=== PATIENT | female | born 1955 | race Caucasian/White ===

== ENCOUNTER → 2017-03-20 | Outpatient (CLI) | payer BC ==
[~2017-03-20] MED LIST: AMBIEN10 M1 PO; CELEXA40 MG PO; DONNATAL1 TAB PO; PRILOSEC20 M2 PO; VICODIN 5/500 505 MG PO; ZETIA10 MG PO
[2017-03-20 08:57] LABS: BASO % 0.5 % (0.0-1.0); EOS # 0.3 10*3/uL (0.0-0.4); EOS % 3.9 % (1.0-4.0); HEMOGLOBIN 14.4 g/dl (12.0-16.0); MEAN CELL VOLUME 95.7 fl (81.0-99.0); MEAN CORPUSCULAR HGB 30.6 pg (27.0-31.0); MEAN PLATELET VOLUME 10.5 fl (9.6-12.3); MONO # 0.6 10*3/uL (0.1-1.0); MONO % 8.5 % (3.0-9.0); NEUT # 2.8 10*3/uL (2.3-7.9); NEUT % 41.6 % (47.0-73.0); PLATELET COUNT AUTOMATED 191 10*3/uL (130-400); RED CELL DISTRI WIDTH 13.6 % (0-14.5); WHITE BLOOD COUNT 6.6 10*3/uL (4.8-10.8)
[2017-03-20 09:06] LABS: ALBUMIN 3.8 gm/dl (3.1-4.5); ALKALINE PHOSPHATASE 136 U/L (45-117); BUN 15 mg/dl (7-24); CHLORIDE 105 mmol/L (98-107); CHOLESTEROL 158 mg/dL (<200); CREATININE 0.82 mg/dL (0.55-1.02); HDL CHOLESTEROL 48 mg/dl (40-60); LDL CHOLESTEROL 81 mg/dL (9-159); POTASSIUM 4.1 mmol/L (3.5-5.1); SGOT/AST 34 IU/L (3-35); SGPT/ALT 32 U/L (12-78); SODIUM 141 mmol/L (136-145); TOTAL PROTEIN 7.5 gm/dL (6.4-8.2); TRIGLYCERIDES 145 mg/dl (<150); VLDL CHOLESTEROL 29 mg/dL (6-40)
== END | disposition home or self-care (01) ==
LOC: LAB 08:12
PROVIDERS: Physician Assistant Medical
DX: E78.00 Pure hypercholesterolemia, unspecified (principal)

== ENCOUNTER → 2017-03-28 | Outpatient (CLI) | payer BC | END | disposition home or self-care (01) | LOC: LAB 11:55 | DX: R73.9 Hyperglycemia, unspecified (principal) ==

== ENCOUNTER → 2017-05-13 | Outpatient (CLI) | payer BC ==
[~2017-05-13] MED LIST changes: +B12100 MC1 PO; +COQ-10100 MG PO; +FIBER GUMMIES2 GM PO; +FISH OIL 1,2001 EAC1 PO; +LORAZEPAM0.5 MG PO; +SERTRALINE HYD100 MG PO; +VIT D PO; +ZOCOR20 MG PO; +ZOLPIDEM10 MG PO
--- NOTE | ~2017-05-13 | ST ---
[place], [place] EXERCISE STRESS TEST REPORT NAME: [facility]KEON [facility]: [id number] UNIT #: [id number] ROOM: DOCTOR: SHIVA CANELA MD BIRTHDATE: [birth year] DOS: 05/13/2017 PHARMACOLOGICAL STRESS TEST REPORT ORDERING PHYSICIAN: Dr. Wynne REASON FOR STRESS TEST: Abnormal electrocardiogram, preoperative examination. PROCEDURE IN DETAIL: The patient was given a rapid infusion of regadenoson 0.4 mg intravenously, followed by a saline flush. She felt chest heaviness and a fullness in her head as well as abdominal discomfort that all resolved spontaneously. Forty seconds after the infusion of regadenoson, she was given radionuclide intravenously. The resting heart rate of 69 daniel to 112. The resting blood pressure of 132/84 daniel to 148/84. She did not have any diagnostic electrocardiographic changes aside from an appropriate tachycardic response. IMPRESSION: 1. Well tolerated infusion of regadenoson. 2. Radionuclide injected. Please see the separate imaging report for further details of the patient's stress test results. SHIVA CANELA MD CM:STRESS:EXERCISE STRESS TEST REPORT [id number] SHIVA CANELA MD
--- NOTE | 2017-05-13 09:30 | NUR ---
INFORMED CONSENT OBTAINED FOR LEXISCAN NUCLEAR STRESS TEST WITH DR. CANELA. RESTING EKG NSR WITH A RESTING HR OF 69 WITH BP OF 132/84. LUNGS CLEAR WITH SPO2 OF 93% ON ROOM AIR. PT COMPLETED A 1:00 LEXISCAN PROTOCOL RECEIVING LEXISCAN 0.4 MG IV OVER 10 SECONDS. HAD NO EKG CHANGES. DID C/O "CHEST HEAVINESS, FULLNESS IN HEAD" AND ABDOMINAL DISCOMFORT THAT WAS RELIEVED IN RECOVERY. HAD A PEAK HR OF 112 WITH BP OF 140/80. LAST RECOVERY HR OF 109 WITH BP OF 148/84. AWAITING SCANNING IN STABLE CONDITION.
== END | disposition home or self-care (01) ==
LOC: CARD 02:17
DX: Z01.818 Encounter for other preprocedural examination (principal); R94.31 Abnormal electrocardiogram [ECG] [EKG]; Z82.49 Family history of ischemic heart disease and other diseases of the circulatory system

== ENCOUNTER → 2022-02-11 | Outpatient (CLI) | payer MEDICARE | END | disposition home or self-care (01) | LOC: RAD 09:00 | PROVIDERS: ATTEND Family Medicine | DX: M81.0 Age-related osteoporosis without current pathological fracture (principal) ==

== ENCOUNTER → 2022-02-25 | Outpatient (CLI) | payer MEDICARE | END | disposition home or self-care (01) | LOC: CT 10:00 | PROVIDERS: ATTEND Specialist | DX: S09.93XA Unspecified injury of face, initial encounter (principal); J32.2 Chronic ethmoidal sinusitis; J32.0 Chronic maxillary sinusitis; X58.XXXA Exposure to other specified factors, initial encounter; Y93.89 Activity, other specified; Y92.89 Other specified places as the place of occurrence of the external cause; Y99.8 Other external cause status ==

== ENCOUNTER 2022-06-10 09:41 | Emergency (ER) | payer MEDICARE ==
[~2022-06-10] VITALS: Ht 177.8 cm; Wt 63.5 kg
[2022-06-10 13:34] LABS: BASO % 0.3 % (0.0-1.0); EOS # 0.2 10*3/uL (0.0-0.4); EOS % 2.4 % (1.0-4.0); HEMATOCRIT 41.7 % (37.0-47.0); LYMPH # 1.7 10*3/uL (1.3-4.4); LYMPH % 22.7 % (27.0-41.0); MEAN CELL VOLUME 94.6 fl (81.0-99.0); MEAN CORPUSCULAR HGB 30.8 pg (27.0-31.0); MEAN CORPUSCULAR HGB CONC 32.6 g/dl (33.0-37.0); MEAN PLATELET VOLUME 9.9 fl (9.6-12.3); MONO # 0.6 10*3/uL (0.1-1.0); NEUT % 66.3 % (47.0-73.0); PLATELET COUNT AUTOMATED 170 10*3/uL (130-400); RED BLOOD COUNT 4.41 10*6/uL (4.10-5.10); RED CELL DISTRI WIDTH 13.1 % (0-14.5); WHITE BLOOD COUNT 7.5 10*3/uL (4.8-10.8)
[2022-06-10 13:51] LABS: ALKALINE PHOSPHATASE 110 U/L (45-117); BUN 11 mg/dl (7-24); CHLORIDE 106 mmol/L (98-107); CREATININE 0.69 mg/dL (0.55-1.02); POTASSIUM 3.9 mmol/L (3.5-5.1); SGPT/ALT 12 U/L (12-78); SODIUM 137 mmol/L (136-145); TOTAL PROTEIN 7.3 gm/dL (6.4-8.2)
[2022-06-10] MEDS ORDERED: Motrin,Rufen800 MG PO (16:50)
[2022-06-10] MEDS ORDERED: HYDROCODONE-AC1 EAC1 PO (16:50)
[2022-06-10] MEDS ORDERED: CEPHALEXIN500 M1 PO (16:50)
== END 2022-06-10 17:06 | disposition home or self-care (01) ==
LOC: ED 09:41
PROVIDERS: Physician Assistant
DX: K11.5 Sialolithiasis (principal); Z88.8 Allergy status to other drugs, medicaments and biological substances; Z79.899 Other long term (current) drug therapy; Z90.49 Acquired absence of other specified parts of digestive tract; Z98.890 Other specified postprocedural states

== ENCOUNTER → 2022-08-14 | Outpatient (CLI) | payer MEDICARE ==
[~2022-08-14] MED LIST changes: +CEPHALEXIN500 M1 PO; +HYDROCODONE-AC1 EAC1 PO; +Motrin,Rufen800 MG PO
== END | disposition home or self-care (01) ==
LOC: MAMMO 02:12
PROVIDERS: ATTEND Family Medicine
DX: Z12.31 Encounter for screening mammogram for malignant neoplasm of breast (principal)

== ENCOUNTER → 2023-01-13 | Outpatient (CLI) | payer MEDICARE | END | disposition home or self-care (01) | LOC: LAB 13:10 → RAD 13:10 | PROVIDERS: ATTEND Nurse Practitioner Family | DX: J18.8 Other pneumonia, unspecified organism (principal) ==

== ENCOUNTER → 2023-01-27 | Outpatient (CLI) | payer OTHER | END | disposition home or self-care (01) | LOC: RAD 01:30 | PROVIDERS: ATTEND Nurse Practitioner Family | DX: R91.8 Other nonspecific abnormal finding of lung field (principal); R05.9 Cough, unspecified ==

== ENCOUNTER → 2023-03-28 | Outpatient (CLI) | payer OTHER | END | disposition home or self-care (01) | LOC: RAD 14:34 | PROVIDERS: ATTEND Family Medicine | DX: J18.9 Pneumonia, unspecified organism (principal) ==

== ENCOUNTER → 2023-04-16 | Outpatient (CLI) | payer OTHER | END | disposition home or self-care (01) | LOC: CT 04-15 14:00 | PROVIDERS: ATTEND Family Medicine | DX: J18.9 Pneumonia, unspecified organism (principal); M25.78 Osteophyte, vertebrae; I70.0 Atherosclerosis of aorta; Z90.49 Acquired absence of other specified parts of digestive tract ==

== ENCOUNTER → 2024-03-29 | Outpatient (CLI) | payer MEDICARE | END | disposition home or self-care (01) | LOC: RAD 03-01 08:30 | PROVIDERS: ATTEND Obstetrics & Gynecology | DX: Z12.31 Encounter for screening mammogram for malignant neoplasm of breast (principal); M81.0 Age-related osteoporosis without current pathological fracture; M85.80 Other specified disorders of bone density and structure, unspecified site ==